=== PATIENT | male | born 1990 | race Caucasian/White ===

== ENCOUNTER 2016-06-06 11:44 | Day surgery (SDC) | payer OTHER ==
[~2016-06-06] VITALS: Ht 175.3 cm; Wt 103.7 kg
[2016-06-06 12:57] VITALS: Ht 175.3 cm; Wt 103.7 kg
[2016-06-06 13:02] VITALS: BP 133/81; PULSE 62; RESP 17
[2016-06-06] MEDS ORDERED: OMEPRAZOLE PO (13:02)
[2016-06-06] MEDS ORDERED: PROPOFOL 40 ML ONE (13:50)
[2016-06-06 14:31] VITALS: BP 127/81; RESP 15
--- NOTE | 2016-06-06 15:48 | GILP ---
DATE OF PROCEDURE: 06/06/2016 NAME OF PROCEDURES: Esophagogastroduodenoscopy and biopsy. SURGEON: Araceli Mansfield MD PREOPERATIVE DIAGNOSES: 1. Abdominal pain. 2. Chronic heartburn. POSTOPERATIVE DIAGNOSES: 1. Gastroesophageal reflux disease. 2. Gastritis with erosions. 3. Gastric mucosal biopsies were taken for Helicobacter pylori test. INDICATION FOR THE PROCEDURE: Mr. Popeye Bajwa is a 26-year-old male patient who had upper abdomi nal pain and chronic heartburn, not responding to therapy. The patient was scheduled for endoscopic examination for further evaluation. The procedure and possible complications were well explained to the patient. The patient understood and consented to the procedure. DESCRIPTION OF PROCEDURE: Under the influence of anesthesia, the gastroscope was carefully introduc ed into the esophagus and under direct vision, it was advanced to the stomach and through the pyloru s into the duodenal bulb and descending duodenum. FINDINGS: ESOPHAGUS: The patient had gastroesophageal reflux disease. The esophageal mucosa was normal. STOMACH: The patient had gastritis with erosions. Gastric mucosal biopsies were taken for H. pylor i test. DUODENUM: Normal. He tolerated the procedure very well and there was no complication from the procedure. At the end o f the procedure, he was awake with stable vital signs and he was discharged home to the care of his family. IMPRESSION: 1. Gastroesophageal reflux disease. 2. Gastritis with erosions. 3. Gastric mucosal biopsies were taken for Helicobacter pylori test. PLAN: 1. Continue omeprazole. 2. Add Zantac 300 mg p.o. at bedtime. 3. Await H. pylori test report. Dictated By: ARACELI PADILLA/MARINE Conf#: [id number] DID#: [id number]
== END 2016-06-06 16:43 | disposition home or self-care (01) ==
LOC: GIL 11:44
PROVIDERS: ATTEND Internal Medicine Gastroenterology
DX: K21.9 Gastro-esophageal reflux disease without esophagitis (principal); K29.60 Other gastritis without bleeding
CPT/HCPCS: 43239; 87081; Z7610